=== PATIENT | male | born 1985 | race African-American/Black ===

== ENCOUNTER 2022-08-04 14:11 | Inpatient (IN) | payer OTHER ==
[2022-08-04] MEDS ORDERED: HYDROmorphone HCL CARPU-JECT 2 MG/1 ML DISP.SYRIN IVPB ONE (15:30)
[2022-08-04] MEDS ORDERED: Methylnaltrexone Bromide 12 MG/0.6 ML KIT SQ ONE (15:36)
[2022-08-04] MEDS ORDERED: HYDROmorphone HCl 2 MG/ML VIAL ONE ×2 (16:12→17:47)
[2022-08-04 16:30] LABS: EOS % 2.7 % (0-4.5); HEMATOCRIT 25.2 % (35.4-49); HEMOGLOBIN 8.3 GM/dL (11.7-16.9); LYMPH % 31.9 % (8-40); MCH 24.9 pg (25.7-33.7); MCHC 32.9 g/dl (32.0-35.9); MEAN CELL VOLUME 75.8 fl (80-96); MEAN PLT VOLUME 7.9 fl (7.5-11.1); MONO % 14.2 % (3.8-10.2); NEUT % 50.2 % (42.8-82.8); PLATELET COUNT 447 10^3/uL (134-434); RBC 3.33 M/mm3 (4.00-5.60); WHITE BLOOD COUNT 10.1 K/mm3 (4.0-10.0)
[2022-08-04 16:41] LABS: CHLORIDE 107 mmol/L (98-107); SODIUM 140 mmol/L (136-145)
[2022-08-04 16:43] LABS: CALCIUM 8.9 mg/dL (8.5-10.1); GLUCOSE,RANDOM 79 mg/dL (74-106)
[2022-08-04 16:44] LABS: ALBUMIN 2.8 g/dl (3.4-5.0); BLOOD UREA NITROGEN 15.6 mg/dL (7-18); CO2 28 mmol/L (21-32)
[2022-08-04 16:47] LABS: CREATININE 1.2 mg/dL (0.55-1.3); SGOT/AST 84 U/L (15-37)
[2022-08-04 16:48] LABS: BILIRUBIN,TOTAL 0.5 mg/dL (0.2-1); TOT PROT 8.3 g/dl (6.4-8.2)
[2022-08-04 16:50] LABS: ALK PHOS 223 U/L (45-117)
[2022-08-04 16:55] LABS: ANION GAP 4 MMOL/L (8-16); SGPT/ALT 55 U/L (13-61)
[2022-08-04] MEDS ORDERED: oxyCODONE HCL 5 MG TABLET PO PRN (17:15)
[2022-08-04] MEDS ORDERED: LACTATED RINGERS SOLUTION 1,000 ML IV SCH (17:15)
[2022-08-04] MEDS ORDERED: ACETAMINOPHEN 325 MG TABLET (FP) PO PRN (17:15)
[2022-08-04] MEDS: HYDROmorphone HCl 2 MG/ML VIAL IVPUSH SCH ×2 (18:38→23:02)
[2022-08-04 18:46] LABS: ALBUMIN 2.9 g/dl (3.4-5.0); BLOOD UREA NITROGEN 15.4 mg/dL (7-18); CALCIUM 8.5 mg/dL (8.5-10.1)
[2022-08-04 18:51] LABS: BILIRUBIN,TOTAL 0.2 mg/dL (0.2-1); TOT PROT 7.5 g/dl (6.4-8.2)
[2022-08-04] MEDS ORDERED: oxyCODONE HCL 5 MG TABLET ONE (21:13)
[2022-08-04] MEDS: oxyCODONE HCL 5 MG TABLET PO PRN (21:19)
[2022-08-04] MEDS: SENNOSIDES 8.6MG TABLET (FP) PO SCH (23:02)
[2022-08-05] MEDS: HYDROmorphone HCl 2 MG/ML VIAL IVPUSH SCH ×8 (01:21→23:53)
[2022-08-05 09:02] LABS: EOS % 4.1 % (0-4.5); HEMOGLOBIN 7.9 GM/dL (11.7-16.9); LYMPH % 38.5 % (8-40); MCH 24.6 pg (25.7-33.7); MCHC 32.7 g/dl (32.0-35.9); MEAN CELL VOLUME 75.1 fl (80-96); MEAN PLT VOLUME 7.3 fl (7.5-11.1); MONO % 13.8 % (3.8-10.2); NEUT % 42.6 % (42.8-82.8); PLATELET COUNT 376 10^3/uL (134-434); WHITE BLOOD COUNT 8.2 K/mm3 (4.0-10.0)
[2022-08-05 09:09] LABS: INR 1.31 (0.83-1.09); PROTHROMBIN TIME (PATIENT) 15.1 SEC (9.7-13.0)
[2022-08-05 09:11] LABS: ACTIVATED PTT 31.9 SECONDS (25.2-36.5)
[2022-08-05] MEDS: POLYETHYLENE GLYCOL (HEALTHYLAX) 3350 17 GM PACKET PO SCH (09:12)
[2022-08-05] MEDS: ENOXAPARIN NA (PORCINE) 40 MG/0.4 ML DISP.SYRIN SQ SCH (09:12)
[2022-08-05] MEDS: SENNOSIDES 8.6MG TABLET (FP) PO SCH ×2 (09:13→22:03)
[2022-08-05 09:33] LABS: CALCIUM 8.7 mg/dL (8.5-10.1)
[2022-08-05 09:34] LABS: ALBUMIN 2.7 g/dl (3.4-5.0); MAGNESIUM 2.2 mg/dL (1.8-2.4)
[2022-08-05 09:37] LABS: CREATININE 0.8 mg/dL (0.55-1.3); PHOSPHOROUS 4.3 mg/dL (2.5-4.9)
[2022-08-05 09:39] LABS: BILIRUBIN,TOTAL 0.3 mg/dL (0.2-1)
[2022-08-05] MEDS: oxyCODONE HCL 5 MG TABLET PO PRN (11:36)
[2022-08-05] MEDS ORDERED: morphine SO4 SUSTAINED ACTING 100 MG TABLET.SA PO SCH (12:30)
[2022-08-05] MEDS: LIDOCAINE PATCH REMOVAL MC SCH (22:01)
[2022-08-05] MEDS: MELATONIN 1 MG TABLET PO SCH (22:02)
[2022-08-05] MEDS: morphine SO4 SUSTAINED ACTING 30 MG TABLET.SA PO SCH (22:02)
[2022-08-06] MEDS: HYDROmorphone HCl 2 MG/ML VIAL IVPUSH SCH ×4 (03:03→11:39)
[2022-08-06] MEDS: POLYETHYLENE GLYCOL (HEALTHYLAX) 3350 17 GM PACKET PO SCH (09:50)
[2022-08-06] MEDS: LIDOCAINE 5% TOPICAL PATCH TP SCH (09:51)
[2022-08-06] MEDS: ENOXAPARIN NA (PORCINE) 40 MG/0.4 ML DISP.SYRIN SQ SCH (09:56)
[2022-08-06] MEDS: morphine SO4 SUSTAINED ACTING 30 MG TABLET.SA PO SCH (09:56)
[2022-08-06] MEDS: CHOLECALCIFEROL (VIT D3) 1,000 UNIT (25 MCG) TABLET PO SCH (09:57)
[2022-08-06] MEDS: amLODIPine BESYLATE 5 MG TABLET (FP) PO SCH (09:57)
[2022-08-06] MEDS: PANTOPRAZOLE 40 MG TABLET PO SCH (09:57)
[2022-08-06] MEDS: SENNOSIDES 8.6MG TABLET (FP) PO SCH ×2 (09:57→22:25)
[2022-08-06 14:14] VITALS: BMI 24.1
[2022-08-06] MEDS: oxyCODONE HCL 5 MG TABLET PO SCH ×3 (15:18→22:25)
[2022-08-06] MEDS: ACETAMINOPHEN 325 MG TABLET (FP) PO SCH ×2 (16:36→21:41)
[2022-08-06] MEDS: HYDROmorphone HCL 2 MG TABLET PO PRN ×2 (16:38→20:31)
[2022-08-06 19:46] LABS: HEMATOCRIT 25.5 % (35.4-49); HEMOGLOBIN 8.3 GM/dL (11.7-16.9); MCH 24.6 pg (25.7-33.7); MCHC 32.4 g/dl (32.0-35.9); MEAN CELL VOLUME 75.7 fl (80-96); MEAN PLT VOLUME 7.4 fl (7.5-11.1); PLATELET COUNT 354 10^3/uL (134-434); RBC 3.37 M/mm3 (4.00-5.60); RDW 17.7 % (11.9-15.9)
[2022-08-06 20:09] LABS: BLOOD UREA NITROGEN 13.8 mg/dL (7-18); CALCIUM 8.5 mg/dL (8.5-10.1)
[2022-08-06 20:12] LABS: PHOSPHOROUS 4.1 mg/dL (2.5-4.9)
[2022-08-06] MEDS: DOCUSATE SODIUM 100 MG CAPSULE (FP) PO SCH (22:25)
[2022-08-06] MEDS: GABAPENTIN 300 MG CAPSULE PO SCH (22:25)
[2022-08-06] MEDS: MELATONIN 1 MG TABLET PO SCH (22:25)
[2022-08-06] MEDS: LIDOCAINE PATCH REMOVAL MC SCH (22:29)
[2022-08-07] MEDS: HYDROmorphone HCL 2 MG TABLET PO PRN ×5 (00:22→21:20)
[2022-08-07] MEDS: oxyCODONE HCL 5 MG TABLET PO SCH ×6 (02:33→22:46)
[2022-08-07] MEDS: ACETAMINOPHEN 325 MG TABLET (FP) PO SCH ×4 (03:43→21:19)
[2022-08-07] MEDS: GABAPENTIN 300 MG CAPSULE PO SCH ×3 (06:21→22:47)
[2022-08-07 08:33] LABS: HEMATOCRIT 24.6 % (35.4-49); HEMOGLOBIN 7.8 GM/dL (11.7-16.9); MCH 23.9 pg (25.7-33.7); MCHC 31.6 g/dl (32.0-35.9); MEAN CELL VOLUME 75.6 fl (80-96); MEAN PLT VOLUME 7.8 fl (7.5-11.1); PLATELET COUNT 371 10^3/uL (134-434); RBC 3.26 M/mm3 (4.00-5.60); RDW 17.8 % (11.9-15.9)
[2022-08-07 09:02] LABS: CALCIUM 8.5 mg/dL (8.5-10.1)
[2022-08-07 09:03] LABS: BLOOD UREA NITROGEN 15.3 mg/dL (7-18); MAGNESIUM 2.1 mg/dL (1.8-2.4)
[2022-08-07 09:06] LABS: CREATININE 0.9 mg/dL (0.55-1.3); PHOSPHOROUS 4.2 mg/dL (2.5-4.9)
[2022-08-07] MEDS: ENOXAPARIN NA (PORCINE) 40 MG/0.4 ML DISP.SYRIN SQ SCH (09:12)
[2022-08-07] MEDS: SENNOSIDES 8.6MG TABLET (FP) PO SCH ×2 (09:13→22:46)
[2022-08-07] MEDS: amLODIPine BESYLATE 5 MG TABLET (FP) PO SCH (09:13)
[2022-08-07] MEDS: POLYETHYLENE GLYCOL (HEALTHYLAX) 3350 17 GM PACKET PO SCH (09:13)
[2022-08-07] MEDS: PANTOPRAZOLE 40 MG TABLET PO SCH (09:13)
[2022-08-07] MEDS: LIDOCAINE 5% TOPICAL PATCH TP SCH (09:13)
[2022-08-07] MEDS: CHOLECALCIFEROL (VIT D3) 1,000 UNIT (25 MCG) TABLET PO SCH (09:13)
[2022-08-07] MEDS: MELATONIN 1 MG TABLET PO SCH (22:46)
[2022-08-07] MEDS: DOCUSATE SODIUM 100 MG CAPSULE (FP) PO SCH (22:46)
[2022-08-07] MEDS: LIDOCAINE PATCH REMOVAL MC SCH (22:52)
[2022-08-08] MEDS: oxyCODONE HCL 5 MG TABLET PO SCH ×6 (02:04→22:05)
[2022-08-08] MEDS: ACETAMINOPHEN 325 MG TABLET (FP) PO SCH ×3 (02:56→16:34)
[2022-08-08] MEDS: GABAPENTIN 300 MG CAPSULE PO SCH ×3 (06:19→22:04)
[2022-08-08] MEDS: HYDROmorphone HCL 2 MG TABLET PO PRN ×4 (07:04→23:11)
[2022-08-08] MEDS: POLYETHYLENE GLYCOL (HEALTHYLAX) 3350 17 GM PACKET PO SCH (09:05)
[2022-08-08] MEDS: ENOXAPARIN NA (PORCINE) 40 MG/0.4 ML DISP.SYRIN SQ SCH (09:05)
[2022-08-08] MEDS: amLODIPine BESYLATE 5 MG TABLET (FP) PO SCH (09:06)
[2022-08-08] MEDS: PANTOPRAZOLE 40 MG TABLET PO SCH (09:06)
[2022-08-08] MEDS: SENNOSIDES 8.6MG TABLET (FP) PO SCH ×2 (09:06→22:03)
[2022-08-08] MEDS: LIDOCAINE 5% TOPICAL PATCH TP SCH (09:06)
[2022-08-08] MEDS: CHOLECALCIFEROL (VIT D3) 1,000 UNIT (25 MCG) TABLET PO SCH (09:06)
[2022-08-08] MEDS: DOCUSATE SODIUM 100 MG CAPSULE (FP) PO SCH (22:04)
[2022-08-08] MEDS: MELATONIN 1 MG TABLET PO SCH (22:04)
[2022-08-08] MEDS: LIDOCAINE PATCH REMOVAL MC SCH (22:06)
[2022-08-08 23:46] VITALS: RESP 18
[2022-08-09] MEDS: ACETAMINOPHEN 325 MG TABLET (FP) PO SCH ×3 (02:32→09:13)
[2022-08-09] MEDS: oxyCODONE HCL 5 MG TABLET PO SCH ×4 (03:09→13:46)
[2022-08-09] MEDS: GABAPENTIN 300 MG CAPSULE PO SCH ×2 (05:54→13:46)
[2022-08-09] MEDS: SENNOSIDES 8.6MG TABLET (FP) PO SCH (09:07)
[2022-08-09] MEDS: CHOLECALCIFEROL (VIT D3) 1,000 UNIT (25 MCG) TABLET PO SCH (09:07)
[2022-08-09] MEDS: PANTOPRAZOLE 40 MG TABLET PO SCH (09:07)
[2022-08-09] MEDS: amLODIPine BESYLATE 5 MG TABLET (FP) PO SCH (09:07)
[2022-08-09] MEDS: ENOXAPARIN NA (PORCINE) 40 MG/0.4 ML DISP.SYRIN SQ SCH (09:09)
[2022-08-09] MEDS: POLYETHYLENE GLYCOL (HEALTHYLAX) 3350 17 GM PACKET PO SCH (09:09)
[2022-08-09] MEDS: LIDOCAINE 5% TOPICAL PATCH TP SCH (09:15)
[2022-08-09 09:23] VITALS: BP 121/83; PULSE 77; TEMP 99.1
[2022-08-09] MEDS: HYDROmorphone HCL 2 MG TABLET PO PRN (11:40)
== END 2022-08-09 14:34 | disposition home or self-care (01) | DRG 281 ==
LOC: JER 14:11 → JERBED 16:55 → J7W 22:54
PROVIDERS: ADMIT Internal Medicine; ATTEND Internal Medicine
DX: C25.9 Malignant neoplasm of pancreas, unspecified (principal); C78.6 Secondary malignant neoplasm of retroperitoneum and peritoneum; E44.0 Moderate protein-calorie malnutrition; Z68.24 Body mass index [BMI] 24.0-24.9, adult; E87.5 Hyperkalemia; E88.09 Other disorders of plasma-protein metabolism, not elsewhere classified; D63.8 Anemia in other chronic diseases classified elsewhere; E11.9 Type 2 diabetes mellitus without complications; I10 Essential (primary) hypertension; E78.5 Hyperlipidemia, unspecified; R11.2 Nausea with vomiting, unspecified; R59.9 Enlarged lymph nodes, unspecified; N40.0 Benign prostatic hyperplasia without lower urinary tract symptoms; D73.4 Cyst of spleen; K76.89 Other specified diseases of liver; R63.4 Abnormal weight loss; G89.3 Neoplasm related pain (acute) (chronic); Z88.6 Allergy status to analgesic agent
CPT/HCPCS: 36415; 71046-TC-FY; 74178-TC; 80048; 80053; 82728; 83036; 83540; 83550; 83615; 83690; 83735; 84100; 85025; 85027; 85045; 85610; 85730; 86850; 86900; 86901; 93005; 93010; 97116-GP; 97161-GP; 99285-25; C9803-CS; Q9967; U0003; U0005

== ENCOUNTER 2022-10-22 19:39 | Inpatient (IN) | payer OTHER ==
[2022-10-22 19:57] VITALS: BMI 26.4
[2022-10-23] MEDS ORDERED: morphine CARPU-JECT 4 MG/1 ML DISP.SYRIN IVPUSH ONE (01:37)
[2022-10-23] MEDS ORDERED: morphine SULFATE 4 MG/ML VIAL ONE (01:39)
[2022-10-23 01:54] LABS: BASO % 1.1 % (0-2.0); EOS % 0.6 % (0-4.5); HEMATOCRIT 35.2 % (35.4-49); HEMOGLOBIN 10.8 GM/dL (11.7-16.9); LYMPH % 29.2 % (8-40); MCH 22.2 pg (25.7-33.7); MCHC 30.5 g/dl (32.0-35.9); MEAN CELL VOLUME 72.8 fl (80-96); MEAN PLT VOLUME 7.3 fl (7.5-11.1); MONO % 3.7 % (3.8-10.2); NEUT % 65.4 % (42.8-82.8); PLATELET COUNT 190 10^3/uL (134-434); RBC 4.84 M/mm3 (4.00-5.60); WHITE BLOOD COUNT 3.3 K/mm3 (4.0-10.0)
[2022-10-23 02:14] LABS: CALCIUM 8.3 mg/dL (8.5-10.1)
[2022-10-23 02:15] LABS: ALBUMIN 2.1 g/dl (3.4-5.0); BLOOD UREA NITROGEN 16.4 mg/dL (7-18)
[2022-10-23 02:17] LABS: CREATININE 1.1 mg/dL (0.55-1.3)
[2022-10-23 02:19] LABS: BILIRUBIN,TOTAL 0.2 mg/dL (0.2-1)
[2022-10-23] MEDS ORDERED: HYDROmorphone HCL CARPU-JECT 2 MG/1 ML DISP.SYRIN IVPB ONE ×2 (02:55→09:48)
[2022-10-23] MEDS ORDERED: HYDROmorphone HCl 2 MG/ML VIAL ONE ×2 (03:12→15:50)
[2022-10-23] MEDS ORDERED: ONDANSETRON 4 MG TABLET PO PRN (05:27)
[2022-10-23] MEDS: GABAPENTIN 300 MG CAPSULE PO SCH ×3 (07:37→22:10)
[2022-10-23] MEDS ORDERED: PIPERACILLIN/TAZOB 3.375 GM 3.375 GM in DEXTROSE 5%-WATER - 50 ML IVPB ONE (09:32)
[2022-10-23] MEDS ORDERED: PIPERACILLIN/TAZOB 3.375 GM 3.375 GM/50 ML BAG IVPB ONE (09:52)
[2022-10-23] MEDS ORDERED: ENOXAPARIN NA (PORCINE) 40 MG/0.4 ML DISP.SYRIN SQ ONE (09:52)
[2022-10-23] MEDS ORDERED: ENOXAPARIN NA (PORCINE) 40 MG/0.4 ML DISP.SYRIN SQ SCH ×2 (10:00)
[2022-10-23] MEDS ORDERED: PATIENT'S OWN MEDICATION (NON-FORMULARY) (Naloxegol Oxalate [Movantik] 25 MG Tablet) PO SCH (10:00)
[2022-10-23] MEDS ORDERED: FLU VACC QS2022-23(6MOS UP)/PF 60 MCG/0.5 ML SYRINGE IM ONE (10:00)
[2022-10-23] MEDS ORDERED: PANTOPRAZOLE 40 MG TABLET PO SCH (10:00)
[2022-10-23] MEDS: DEXTROSE 5%-LACTATED RINGERS 1,000 ML IV SCH ×2 (10:15→19:40)
[2022-10-23] MEDS ORDERED: ONDANSETRON 4 MG/2 ML VIAL IVPUSH ONE (10:28)
[2022-10-23] MEDS ORDERED: ONDANSETRON 4 MG/2 ML VIAL ONE (10:31)
[2022-10-23] MEDS: oxyCODONE HCL 5 MG TABLET PO SCH ×2 (10:38→12:58)
[2022-10-23 10:43] LABS: INR 1.46 (0.83-1.09); PROTHROMBIN TIME (PATIENT) 16.9 SEC (9.7-13.0)
[2022-10-23 10:53] LABS: CALCIUM 7.5 mg/dL (8.5-10.1)
[2022-10-23 10:54] LABS: ALBUMIN 1.8 g/dl (3.4-5.0)
[2022-10-23 10:59] LABS: BILIRUBIN,TOTAL 0.2 mg/dL (0.2-1)
[2022-10-23 11:00] LABS: BASO % 0.8 % (0-2.0); EOS % 0.7 % (0-4.5); HEMATOCRIT 28.9 % (35.4-49); HEMOGLOBIN 8.9 GM/dL (11.7-16.9); LYMPH % 33.7 % (8-40); MCH 22.2 pg (25.7-33.7); MCHC 30.6 g/dl (32.0-35.9); MEAN CELL VOLUME 72.4 fl (80-96); MEAN PLT VOLUME 7.6 fl (7.5-11.1); MONO % 6.9 % (3.8-10.2); NEUT % 57.9 % (42.8-82.8); PLATELET COUNT 162 10^3/uL (134-434); RBC 3.99 M/mm3 (4.00-5.60); WHITE BLOOD COUNT 2.2 K/mm3 (4.0-10.0)
[2022-10-23] MEDS ORDERED: MAGNESIUM OXIDE 400 MG TABLET (FP) ONE (12:51)
[2022-10-23] MEDS ORDERED: SENNOSIDES 8.6MG TABLET (FP) PO ONE (12:51)
[2022-10-23] MEDS ORDERED: PANTOPRAZOLE 40 MG TABLET PO ONE (12:51)
[2022-10-23] MEDS ORDERED: GABAPENTIN 300 MG CAPSULE ONE (12:52)
[2022-10-23] MEDS ORDERED: oxyCODONE HCL 5 MG TABLET ONE (12:52)
[2022-10-23] MEDS: SENNOSIDES 8.6MG TABLET (FP) PO SCH (12:58)
[2022-10-23] MEDS: MAGNESIUM OXIDE 400 MG TABLET (FP) PO SCH (12:58)
[2022-10-23] MEDS ORDERED: morphine SULFATE 4 MG/ML VIAL IVPUSH PRN (13:47)
[2022-10-23] MEDS ORDERED: HYDROmorphone HCL CARPU-JECT 2 MG/1 ML DISP.SYRIN IVPUSH ONE (15:48)
[2022-10-23] MEDS ORDERED: HYDROmorphone HCl 2 MG/ML VIAL IVPUSH ONE (15:48)
[2022-10-23] MEDS: INSULIN SLIDING SCALE (NOVOLOG) 1 VIAL SQ SCH ×2 (17:43→22:10)
[2022-10-23 18:32] LABS: HEMATOCRIT 28.8 % (35.4-49); HEMOGLOBIN 8.7 GM/dL (11.7-16.9); MCH 22.2 pg (25.7-33.7); MCHC 30.4 g/dl (32.0-35.9); MEAN CELL VOLUME 73.1 fl (80-96); MEAN PLT VOLUME 7.5 fl (7.5-11.1); PLATELET COUNT 152 10^3/uL (134-434); RBC 3.94 M/mm3 (4.00-5.60); RDW 20.8 % (11.9-15.9)
[2022-10-23 18:48] LABS: WHITE BLOOD COUNT 1.9 K/mm3 (4.0-10.0)
[2022-10-23] MEDS ORDERED: HYDROmorphone HCl 2 MG/ML VIAL IVPUSH PRN (20:42)
[2022-10-23] MEDS: HYDROmorphone HCl 2 MG/ML VIAL IVPUSH PRN (21:50)
[2022-10-23] MEDS: MELATONIN 1 MG TABLET PO SCH (23:02)
[2022-10-24] MEDS: HYDROmorphone HCl 2 MG/ML VIAL IVPUSH PRN ×5 (00:19→16:25)
[2022-10-24] MEDS: DEXTROSE 5%-LACTATED RINGERS 1,000 ML IV SCH ×2 (05:45→10:00)
[2022-10-24] MEDS: GABAPENTIN 300 MG CAPSULE PO SCH ×3 (05:45→21:52)
[2022-10-24 06:41] LABS: BASO % 0.8 % (0-2.0); EOS % 1.3 % (0-4.5); HEMATOCRIT 29.1 % (35.4-49); HEMOGLOBIN 8.9 GM/dL (11.7-16.9); LYMPH % 41.1 % (8-40); MCH 22.4 pg (25.7-33.7); MCHC 30.7 g/dl (32.0-35.9); MEAN CELL VOLUME 72.9 fl (80-96); MEAN PLT VOLUME 7.7 fl (7.5-11.1); MONO % 8.3 % (3.8-10.2); NEUT % 48.5 % (42.8-82.8); PLATELET COUNT 151 10^3/uL (134-434); RBC 3.99 M/mm3 (4.00-5.60); RDW 20.6 % (11.9-15.9); WHITE BLOOD COUNT 2.3 K/mm3 (4.0-10.0)
[2022-10-24] MEDS: INSULIN SLIDING SCALE (NOVOLOG) 1 VIAL SQ SCH ×4 (06:42→22:20)
[2022-10-24 07:00] LABS: CALCIUM 7.6 mg/dL (8.5-10.1)
[2022-10-24 07:01] LABS: ALBUMIN 1.6 g/dl (3.4-5.0); BLOOD UREA NITROGEN 13.6 mg/dL (7-18); MAGNESIUM 1.9 mg/dL (1.8-2.4)
[2022-10-24 07:04] LABS: PHOSPHOROUS 2.7 mg/dL (2.5-4.9)
[2022-10-24 07:06] LABS: BILIRUBIN,TOTAL 0.2 mg/dL (0.2-1); TOT PROT 4.7 g/dl (6.4-8.2)
[2022-10-24 07:29] LABS: IRON SERUM 18 ug/dL (50-175)
[2022-10-24 07:30] LABS: TOTAL IRON BINDING CAPACITY 220 ug/dL (250-450)
[2022-10-24] MEDS: MAGNESIUM OXIDE 400 MG TABLET (FP) PO SCH (09:09)
[2022-10-24] MEDS: SENNOSIDES 8.6MG TABLET (FP) PO SCH (09:09)
[2022-10-24] MEDS ORDERED: PANTOPRAZOLE SODIUM 40 MG VIAL IVPUSH SCH (10:00)
[2022-10-24] MEDS ORDERED: morphine SULFATE IMMEDIATE RELEASE 30 MG TAB PO PRN (12:00)
[2022-10-24] MEDS ORDERED: ENOXAPARIN NA (PORCINE) 100 MG/1 ML DISP.SYRIN SQ SCH (13:30)
[2022-10-24] MEDS: morphine SO4 SUSTAINED ACTING 100 MG TABLET.SA PO SCH ×2 (14:47→17:15)
[2022-10-24] MEDS ORDERED: morphine CARPU-JECT 4 MG/1 ML DISP.SYRIN IVPUSH PRN (21:40)
[2022-10-24] MEDS: MELATONIN 1 MG TABLET PO SCH (21:51)
[2022-10-24] MEDS: morphine SULFATE 4 MG/ML VIAL IVPUSH PRN (21:51)
[2022-10-25] MEDS: morphine SULFATE 4 MG/ML VIAL IVPUSH PRN ×9 (00:06→23:10)
[2022-10-25] MEDS ORDERED: ONDANSETRON 4 MG TABLET PO PRN (00:32)
[2022-10-25] MEDS: DEXTROSE 5%-LACTATED RINGERS 1,000 ML IV SCH (01:27)
[2022-10-25] MEDS: GABAPENTIN 300 MG CAPSULE PO SCH ×3 (05:48→21:41)
[2022-10-25] MEDS: INSULIN SLIDING SCALE (NOVOLOG) 1 VIAL SQ SCH ×4 (06:26→21:34)
[2022-10-25] MEDS: SENNOSIDES 8.6MG TABLET (FP) PO SCH (09:07)
[2022-10-25] MEDS: morphine SO4 SUSTAINED ACTING 100 MG TABLET.SA PO SCH ×2 (09:07→21:41)
[2022-10-25] MEDS: MAGNESIUM OXIDE 400 MG TABLET (FP) PO SCH (09:08)
[2022-10-25] MEDS: PANTOPRAZOLE SODIUM 40 MG VIAL IVPUSH SCH (09:08)
[2022-10-25] MEDS ORDERED: NALOXEGOL OXALATE PO SCH (10:00)
[2022-10-25] MEDS ORDERED: ENOXAPARIN NA (PORCINE) 80 MG/0.8 ML DISP.SYRIN SQ SCH ×2 (12:00→16:45)
[2022-10-25] MEDS: MELATONIN 1 MG TABLET PO SCH (21:41)
[2022-10-25] MEDS: ENOXAPARIN NA (PORCINE) 100 MG/1 ML DISP.SYRIN SQ SCH (21:41)
[2022-10-26] MEDS: DEXTROSE 5%-LACTATED RINGERS 1,000 ML IV SCH (00:47)
[2022-10-26] MEDS: morphine SULFATE 4 MG/ML VIAL IVPUSH PRN ×10 (01:39→23:47)
[2022-10-26] MEDS: GABAPENTIN 300 MG CAPSULE PO SCH ×3 (05:53→21:19)
[2022-10-26] MEDS: INSULIN SLIDING SCALE (NOVOLOG) 1 VIAL SQ SCH ×4 (08:24→21:32)
[2022-10-26] MEDS: PANTOPRAZOLE SODIUM 40 MG VIAL IVPUSH SCH (09:19)
[2022-10-26] MEDS: ENOXAPARIN NA (PORCINE) 100 MG/1 ML DISP.SYRIN SQ SCH ×2 (09:19→21:19)
[2022-10-26] MEDS: morphine SO4 SUSTAINED ACTING 100 MG TABLET.SA PO SCH ×2 (09:19→21:19)
[2022-10-26] MEDS: MAGNESIUM OXIDE 400 MG TABLET (FP) PO SCH (09:20)
[2022-10-26] MEDS: SENNOSIDES 8.6MG TABLET (FP) PO SCH (09:21)
[2022-10-26 10:18] LABS: BASO % 0.7 % (0-2.0); EOS % 1.5 % (0-4.5); HEMOGLOBIN 10.5 GM/dL (11.7-16.9); LYMPH % 37.2 % (8-40); MCH 22.2 pg (25.7-33.7); MCHC 30.7 g/dl (32.0-35.9); MEAN CELL VOLUME 72.3 fl (80-96); MONO % 12.5 % (3.8-10.2); NEUT % 48.1 % (42.8-82.8); PLATELET COUNT 230 10^3/uL (134-434); RBC 4.71 M/mm3 (4.00-5.60); RDW 20.7 % (11.9-15.9); WHITE BLOOD COUNT 2.8 K/mm3 (4.0-10.0)
[2022-10-26 10:38] LABS: CALCIUM 7.8 mg/dL (8.5-10.1)
[2022-10-26 10:39] LABS: ALBUMIN 1.7 g/dl (3.4-5.0); BLOOD UREA NITROGEN 15.4 mg/dL (7-18); MAGNESIUM 1.7 mg/dL (1.8-2.4)
[2022-10-26 10:42] LABS: CREATININE 1.1 mg/dL (0.55-1.3); PHOSPHOROUS 3.1 mg/dL (2.5-4.9)
[2022-10-26 10:44] LABS: BILIRUBIN,TOTAL 0.3 mg/dL (0.2-1); TOT PROT 5.1 g/dl (6.4-8.2)
[2022-10-26 12:44] LABS: ANISOCYTOSIS 1+; MACROCYTOSIS 1+; OVALOCYTE 1+
[2022-10-26] MEDS: MELATONIN 1 MG TABLET PO SCH (21:19)
[2022-10-27] MEDS: DEXTROSE 5%-LACTATED RINGERS 1,000 ML IV SCH (03:29)
[2022-10-27] MEDS: morphine SULFATE 4 MG/ML VIAL IVPUSH PRN ×8 (05:43→23:30)
[2022-10-27] MEDS: GABAPENTIN 300 MG CAPSULE PO SCH ×3 (05:43→22:33)
[2022-10-27] MEDS: INSULIN SLIDING SCALE (NOVOLOG) 1 VIAL SQ SCH ×4 (06:59→22:47)
[2022-10-27 09:51] LABS: BASO % 0.6 % (0-2.0); HEMATOCRIT 33.6 % (35.4-49); HEMOGLOBIN 10.4 GM/dL (11.7-16.9); LYMPH % 45.4 % (8-40); MCH 22.2 pg (25.7-33.7); MCHC 30.9 g/dl (32.0-35.9); MEAN CELL VOLUME 71.8 fl (80-96); MEAN PLT VOLUME 7.7 fl (7.5-11.1); MONO % 11.8 % (3.8-10.2); NEUT % 41.2 % (42.8-82.8); PLATELET COUNT 260 10^3/uL (134-434); RBC 4.68 M/mm3 (4.00-5.60); RDW 21.3 % (11.9-15.9)
[2022-10-27] MEDS: ENOXAPARIN NA (PORCINE) 100 MG/1 ML DISP.SYRIN SQ SCH ×2 (09:54→22:35)
[2022-10-27] MEDS: MAGNESIUM OXIDE 400 MG TABLET (FP) PO SCH (09:54)
[2022-10-27] MEDS: PANTOPRAZOLE SODIUM 40 MG VIAL IVPUSH SCH (09:54)
[2022-10-27] MEDS: SENNOSIDES 8.6MG TABLET (FP) PO SCH (09:55)
[2022-10-27 10:13] LABS: ALBUMIN 1.8 g/dl (3.4-5.0); BLOOD UREA NITROGEN 16.5 mg/dL (7-18)
[2022-10-27 10:17] LABS: BILIRUBIN,TOTAL 0.3 mg/dL (0.2-1); TOT PROT 5.3 g/dl (6.4-8.2)
[2022-10-27] MEDS: morphine SO4 SUSTAINED ACTING 100 MG TABLET.SA PO SCH ×2 (10:53→22:33)
[2022-10-27] MEDS ORDERED: INSULIN (NOVOLOG) ASPART 100 UNITS/ML 10ML VIAL ONE (22:29)
[2022-10-27] MEDS: MELATONIN 1 MG TABLET PO SCH (22:33)
[2022-10-28] MEDS: DEXTROSE 5%-LACTATED RINGERS 1,000 ML IV SCH (01:02)
[2022-10-28] MEDS: morphine SULFATE 4 MG/ML VIAL IVPUSH PRN ×7 (01:28→23:31)
[2022-10-28] MEDS: INSULIN SLIDING SCALE (NOVOLOG) 1 VIAL SQ SCH ×4 (06:41→21:05)
[2022-10-28] MEDS: GABAPENTIN 300 MG CAPSULE PO SCH ×3 (06:42→21:05)
[2022-10-28] MEDS: ENOXAPARIN NA (PORCINE) 100 MG/1 ML DISP.SYRIN SQ SCH ×2 (09:08→23:00)
[2022-10-28] MEDS: SENNOSIDES 8.6MG TABLET (FP) PO SCH ×2 (09:08→09:14)
[2022-10-28] MEDS: morphine SO4 SUSTAINED ACTING 100 MG TABLET.SA PO SCH ×3 (09:08→21:04)
[2022-10-28] MEDS: PANTOPRAZOLE SODIUM 40 MG VIAL IVPUSH SCH (09:08)
[2022-10-28] MEDS: MAGNESIUM OXIDE 400 MG TABLET (FP) PO SCH (09:08)
[2022-10-28 10:38] LABS: BASO % 0.9 % (0-2.0); EOS % 1.1 % (0-4.5); HEMATOCRIT 34.5 % (35.4-49); HEMOGLOBIN 10.7 GM/dL (11.7-16.9); LYMPH % 39.6 % (8-40); MCH 22.3 pg (25.7-33.7); MCHC 30.9 g/dl (32.0-35.9); MEAN CELL VOLUME 72.3 fl (80-96); MEAN PLT VOLUME 7.7 fl (7.5-11.1); MONO % 12.9 % (3.8-10.2); NEUT % 45.5 % (42.8-82.8); PLATELET COUNT 266 10^3/uL (134-434); RBC 4.78 M/mm3 (4.00-5.60); RDW 21.4 % (11.9-15.9); WHITE BLOOD COUNT 3.1 K/mm3 (4.0-10.0)
[2022-10-28] MEDS: amLODIPine BESYLATE 10 MG TABLET (FP) PO SCH (10:48)
[2022-10-28 11:00] LABS: ALBUMIN 1.8 g/dl (3.4-5.0); BLOOD UREA NITROGEN 16.4 mg/dL (7-18); CALCIUM 8.1 mg/dL (8.5-10.1)
[2022-10-28 11:05] LABS: BILIRUBIN,TOTAL 0.7 mg/dL (0.2-1); TOT PROT 5.4 g/dl (6.4-8.2)
[2022-10-28] MEDS: MELATONIN 1 MG TABLET PO SCH (21:04)
[2022-10-29] MEDS: morphine SULFATE 4 MG/ML VIAL IVPUSH PRN ×3 (02:14→07:59)
[2022-10-29 04:56] VITALS: RESP 18
[2022-10-29] MEDS: GABAPENTIN 300 MG CAPSULE PO SCH (06:00)
[2022-10-29] MEDS: INSULIN SLIDING SCALE (NOVOLOG) 1 VIAL SQ SCH ×2 (07:22→11:19)
[2022-10-29 10:20] VITALS: BP 134/99; PULSE 82; TEMP 98.4
[2022-10-29] MEDS: PANTOPRAZOLE SODIUM 40 MG VIAL IVPUSH SCH (10:20)
[2022-10-29] MEDS: amLODIPine BESYLATE 10 MG TABLET (FP) PO SCH (10:21)
[2022-10-29] MEDS: MAGNESIUM OXIDE 400 MG TABLET (FP) PO SCH (10:21)
[2022-10-29] MEDS: ENOXAPARIN NA (PORCINE) 100 MG/1 ML DISP.SYRIN SQ SCH (10:21)
[2022-10-29] MEDS: SENNOSIDES 8.6MG TABLET (FP) PO SCH (10:21)
[2022-10-29] MEDS: morphine SO4 SUSTAINED ACTING 100 MG TABLET.SA PO SCH (10:22)
[2022-10-29 10:57] LABS: BASO % 0.9 % (0-2.0); HEMATOCRIT 29.8 % (35.4-49); HEMOGLOBIN 9.3 GM/dL (11.7-16.9); LYMPH % 34.8 % (8-40); MCH 22.4 pg (25.7-33.7); MCHC 31.2 g/dl (32.0-35.9); MEAN CELL VOLUME 71.9 fl (80-96); MEAN PLT VOLUME 7.8 fl (7.5-11.1); MONO % 14.2 % (3.8-10.2); NEUT % 49.1 % (42.8-82.8); PLATELET COUNT 300 10^3/uL (134-434); RBC 4.15 M/mm3 (4.00-5.60); RDW 21.4 % (11.9-15.9); WHITE BLOOD COUNT 2.9 K/mm3 (4.0-10.0)
[2022-10-29 11:30] LABS: CALCIUM 7.9 mg/dL (8.5-10.1); MAGNESIUM 1.7 mg/dL (1.8-2.4)
[2022-10-29 11:31] LABS: ALBUMIN 1.7 g/dl (3.4-5.0)
[2022-10-29 11:34] LABS: CREATININE 0.8 mg/dL (0.55-1.3)
[2022-10-29 11:35] LABS: BILIRUBIN,TOTAL 0.3 mg/dL (0.2-1); TOT PROT 4.8 g/dl (6.4-8.2)
[2022-10-29 11:36] LABS: PHOSPHOROUS 3.2 mg/dL (2.5-4.9)
[2022-10-29 11:50] LABS: ANISOCYTOSIS 1+; MACROCYTOSIS 0
== END 2022-10-29 14:01 | disposition home or self-care (01) | DRG 143 ==
LOC: JER 19:39 → JERBED 10-23 04:41 → JICU 10-23 14:52 → J6S 10-24 19:28
PROVIDERS: ADMIT Family Medicine; ATTEND Internal Medicine
DX: J93.9 Pneumothorax, unspecified (principal); I10 Essential (primary) hypertension; E11.9 Type 2 diabetes mellitus without complications; C25.7 Malignant neoplasm of other parts of pancreas; G89.3 Neoplasm related pain (acute) (chronic); I26.99 Other pulmonary embolism without acute cor pulmonale; D64.9 Anemia, unspecified; K21.9 Gastro-esophageal reflux disease without esophagitis; J98.11 Atelectasis
CPT/HCPCS: 0241U-QW; 36415; 71045-TC-FY; 71250-TC; 74018-TC-FY; 74176-TC; 74177-TC; 80053; 82272; 82728; 82962; 83036; 83540; 83550; 83605; 83690; 83735; 84100; 85025; 85027; 85045; 85610; 86850; 86900; 86901; 93005; 93010; 93306-TC; 93970-TC; 94010; 99285-25; Q9967